=== PATIENT | female | born 1955 | race Caucasian/White ===

== ENCOUNTER 2018-05-22 06:56 | Day surgery (SDC) | payer OTHER ==
[2018-05-22] MEDS: TETRACAINE 0.5% OPHTH SOLN 4ML As Ordered (06:33)
[~2018-05-22 06:56] MED LIST: MIDAZOLAM INJ 2 MG/2 ML VIAL (J2250) As Ordered; fentaNYL 100 MCG/2 ML INJECTION (J3010) As Ordered
[2018-05-22 07:58] LABS: BEDSIDE GLUCOSE 119 MG/DL (80-115)
[2018-05-22] MEDS: POVIDONE-IODINE 5% OPHTH PREP SOL 30ML As Ordered (08:56)
[2018-05-22] MEDS: LIDOCAINE 3.5 % 1ML OPHTH TOPICAL GEL OU (08:56)
[2018-05-22] MEDS ORDERED: PROPOFOL 200 MG/20 ML VIAL As Ordered (09:00)
[2018-05-22] MEDS ORDERED: ONDANSETRON 4MG/2ML VIAL (J2405) As Ordered (09:14)
[2018-05-22] MEDS: LIDOCAINE 2% W/EPIN INJ 20ML **PRES FREE As Ordered (09:20)
[2018-05-22] MEDS: TOBRADEX OPHTH OINT 3.5 GM As Ordered (09:27)
== END 2018-05-22 10:07 | disposition home or self-care (01) ==
LOC: M SDC 06:56
DX: H02.834 Dermatochalasis of left upper eyelid (principal); H02.831 Dermatochalasis of right upper eyelid; H02.403 Unspecified ptosis of bilateral eyelids; E03.9 Hypothyroidism, unspecified; E11.9 Type 2 diabetes mellitus without complications; K21.9 Gastro-esophageal reflux disease without esophagitis; E78.00 Pure hypercholesterolemia, unspecified; Z88.5 Allergy status to narcotic agent; Z79.899 Other long term (current) drug therapy; Z90.710 Acquired absence of both cervix and uterus
CPT/HCPCS: 15823

== ENCOUNTER → 2023-02-08 | Outpatient (CLI) | payer MEDICARE, OTHER ==
[~2023-02-08] MED LIST changes: +ATOR1TAB19 PO; +LEVO100T5 PO; +METHACHOLINE KIT INH ONE; -MIDAZOLAM INJ 2 MG/2 ML VIAL (J2250) As Ordered; +OMEP40CA4 PO; -fentaNYL 100 MCG/2 ML INJECTION (J3010) As Ordered
== END ==
LOC: M CARPUL 10:13
PROVIDERS: ATTEND Physician Assistant
DX: R06.00 Dyspnea, unspecified (principal)
CPT/HCPCS: 94070; 95070; J7674

== ENCOUNTER 2023-03-06 06:01 | Day surgery (SDC) | payer MEDICARE ==
[~2023-03-06] VITALS: Ht 165.1 cm; Wt 99.8 kg
[~2023-03-06 06:01] MED LIST changes: +ADVA230A INH; +ASPI81TA26 PO; +CVS1CAP2 PO; +FEXO60TA98 PO; +METF-839 PO; -METHACHOLINE KIT INH ONE; +PROPARACAINE 0.5% OPHTH SOL 15ML OD ONE; +ROSU10TA6 PO; +SYST1SOL OU; +TUME1CAP PO; +VENTAER INH; +VITA-243 PO; +VITA500079 PO; +tumeric PO
[2023-03-06] MEDS ORDERED: LIDOCAINE 1% SDV 5ML VIAL As Ordered ONE (06:35)
[2023-03-06] MEDS ORDERED: CEFUROXIME 1MG/0.1ML INTRACAMERAL INJ As Ordered ONE (06:36)
[2023-03-06] MEDS ORDERED: BSS IRR 500ML/OMIDRIA 4ML IRR BAG (OR ONLY) As Ordered ONE (06:36)
[2023-03-06] MEDS: TROPICAMIDE 1% OPHTH SOLN 15ML OD SCH ×3 (06:45→07:12)
[2023-03-06] MEDS: CYCLOPENTOLATE 1% OPHTH SOLN 2ML BTL OD SCH ×3 (06:45→07:12)
[2023-03-06] MEDS: OFLOXACIN 0.3 % (OCUFLOX) OPTH SOL 5ML OD SCH ×3 (06:45→07:12)
[2023-03-06] MEDS: PHENYLEPHRINE 2.5% OPHTH SOL 2ML OD SCH ×3 (06:46→07:12)
[2023-03-06] MEDS ORDERED: LIDOCAINE 1% SDV 5ML VIAL SC PRN (07:05)
[2023-03-06] MEDS ORDERED: INSULIN LISPRO (NovoLOG) PER UNIT SC PRN (07:05)
[2023-03-06] MEDS ORDERED: MIDAZOLAM INJ 2MG/2ML VIAL As Ordered ONE ×2 (07:54→07:58)
[2023-03-06 08:10] VITALS: BP 143/81; TEMP 97; O2SAT 97
== END 2023-03-06 08:35 | disposition home or self-care (01) ==
LOC: M SDC 06:01
PROVIDERS: ATTEND Ophthalmology
DX: H25.11 Age-related nuclear cataract, right eye (principal); E11.9 Type 2 diabetes mellitus without complications; E78.5 Hyperlipidemia, unspecified; E03.9 Hypothyroidism, unspecified; K21.9 Gastro-esophageal reflux disease without esophagitis; J45.909 Unspecified asthma, uncomplicated; R06.83 Snoring; Z79.82 Long term (current) use of aspirin; Z79.84 Long term (current) use of oral hypoglycemic drugs; Z79.899 Other long term (current) drug therapy; Z79.51 Long term (current) use of inhaled steroids
CPT/HCPCS: 66984; J0697; J1097; J2250; V2632

== ENCOUNTER 2023-05-01 06:08 | Day surgery (SDC) | payer MEDICARE ==
[~2023-05-01] VITALS: Ht 165.1 cm; Wt 99.3 kg
[~2023-05-01 06:08] MED LIST changes: +ADVI200T PO; +CALC600T60 PO; +CYCL-707 PO; +CYCLOPENTOLATE 1% OPHTH SOLN 2ML BTL OS SCH; +DIPH-435 PO; +LEVO88TA3 PO; +OFLOXACIN 0.3 % (OCUFLOX) OPTH SOL 5ML OS SCH; +OMEP40CA5 PO; +PHENYLEPHRINE 2.5% OPHTH SOL 2ML OS SCH; -PROPARACAINE 0.5% OPHTH SOL 15ML OD ONE; +PROPARACAINE 0.5% OPHTH SOL 15ML OS ONE; +TROPICAMIDE 1% OPHTH SOLN 15ML OS SCH
[2023-05-01] MEDS ORDERED: CEFUROXIME 1MG/0.1ML INTRACAMERAL INJ As Ordered ONE (06:47)
[2023-05-01] MEDS ORDERED: BSS IRR 500ML/OMIDRIA 4ML IRR BAG (OR ONLY) As Ordered ONE (06:47)
[2023-05-01] MEDS ORDERED: LIDOCAINE 1% SDV 5ML VIAL As Ordered ONE (06:47)
[2023-05-01] MEDS ORDERED: MIDAZOLAM INJ 2MG/2ML VIAL As Ordered ONE ×2 (07:46→08:12)
[2023-05-01] MEDS ORDERED: fentaNYL 100 MCG/2 ML INJECTION As Ordered ONE ×2 (07:46→08:12)
[2023-05-01 08:35] VITALS: BP 126/81; TEMP 98.3; O2SAT 95
== END 2023-05-01 09:03 | disposition home or self-care (01) ==
LOC: M SDC 06:08
PROVIDERS: ATTEND Ophthalmology
DX: H25.12 Age-related nuclear cataract, left eye (principal); E11.9 Type 2 diabetes mellitus without complications; Z79.899 Other long term (current) drug therapy
CPT/HCPCS: 66984; J0697; J1097; J2250; J3010; V2632